=== PATIENT | male | born 1935 | race African-American/Black ===

== ENCOUNTER 2020-11-29 19:40 | Observation (INO) | payer OTHER, MEDICAID ==
[~2020-11-29] VITALS: Ht 180.3 cm; Wt 120.2 kg
[2020-11-29 19:44] VITALS: BP 193/93
[2020-11-29 20:08] LABS: ABSOLUTE EOSINOPHILS 0.2 thou/uL (0.0-0.7); ABSOLUTE LYMPHOCYTES 2.1 thou/uL (0.8-5.3); ABSOLUTE MONOCYTES 0.6 thou/uL (0.0-1.2); ABSOLUTE NEUTROPHILS 3.2 thou/uL (1.6-8.1); BASOPHILS 0.6 %; EOSINOPHILS 2.5 %; HEMATOCRIT 38.9 % (42.0-52.0); HEMOGLOBIN 12.5 gm/dL (14.0-18.0); LYMPHOCYTES 34.9 %; MCH 30.5 pg (26.0-34.0); MCHC 32.2 g/dL (28.0-37.0); MCV 94.7 fL (80.0-100.0); MONOCYTES 10.5 %; MPV 7.8 fl. (7.2-11.1); NUCLEATED RBCS 0 /100WBC; PLATELET COUNT* 162 thou/uL (150-400); POLYS 51.5 %; RDW-CV 16.1 % (10.5-14.5); WBC 6.1 thou/uL (4.0-11.0)
[2020-11-29 20:08] LABS: URINE BILIRUBIN NEGATIVE (Negative); URINE BLOOD TRACE (Negative); URINE CLARITY CLEAR; URINE COLOR YELLOW; URINE GLUCOSE-RANDOM NEGATIVE (Negative); URINE KETONES NEGATIVE (Negative); URINE LEUKOCYTES-REFLEX NEGATIVE (Negative); URINE NITRITE-REFLEX NEGATIVE (Negative); URINE PROTEIN NEGATIVE (Negative); URINE UROBILINOGEN 0.2 E.U./dl (0.2-1.0)
[2020-11-29 20:18] LABS: CALCIUM 8.7 mg/dL (8.5-10.1); CREATININE 1.1 mg/dL (0.6-1.3); POTASSIUM 3.8 mmol/L (3.5-5.1)
[2020-11-29 20:20] LABS: PROTIME 11.1 Seconds (9.20-11.50)
[2020-11-29] MEDS ORDERED: KLOR-CON 10 ER10 MEQ PO (20:23)
[2020-11-29] MEDS ORDERED: ALLOPURINOL 10100 M3 PO (20:23)
[2020-11-29] MEDS ORDERED: CARVEDILOL3.125 MG PO (20:23)
[2020-11-29] MEDS ORDERED: CALCIUM CARBON500 MG PO (20:23)
[2020-11-29] MEDS ORDERED: CIPRO500 MG PO (20:24)
[2020-11-29] MEDS ORDERED: LASIX 40 MG TAB40 MG PO (20:25)
[2020-11-29] MEDS ORDERED: ISOSORBIDE DINI30 MG PO (20:25)
[2020-11-29] MEDS ORDERED: CARDURA XL4 MG PO (20:25)
[2020-11-29] MEDS ORDERED: XTANDI40 MG PO (20:25)
[2020-11-29] MEDS ORDERED: METFORMIN HCL500 MG PO (20:26)
[2020-11-29] MEDS ORDERED: OMEPRAZOLE40 MG PO (20:26)
[2020-11-29] MEDS ORDERED: LISINOPRIL2.5 MG PO (20:26)
[2020-11-29 20:28] LABS: ALBUMIN 3.3 g/dL (3.4-5.0); TOTAL BILIRUBIN 0.6 mg/dL (<0.1-1.0); TOTAL PROTEIN 7.3 g/dL (6.4-8.2)
[2020-11-30 01:05] VITALS: BP 155/79
[2020-11-30 02:00] VITALS: BP 140/73
[2020-11-30] MEDS ORDERED: ASA81BEC PO (09:21)
[2020-11-30 09:48] LABS: CHOLESTEROL 165 mg/dL (<200); HDL CHOLESTEROL 45 mg/dL (>40); LDL CHOLESTEROL 103 mg/dL (<100); TC:HDL 3.7 Ratio (Not establshd); TRIGLYCERIDE 88 mg/dL (<150); VLDL 18 mg/dL (<40)
[2020-11-30 09:49] LABS: SERUM ASSESSMENT Clear
[2020-11-30 11:14] VITALS: BP 157/78
--- NOTE | 2020-11-30 12:44 | EKG ---
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 : 1935 Requested By: Lennie Hurtado Order Number: [id number] MD: Bry Gallagher Measurements Intervals [place] Rate: 69 P: 73 NJ: 68 QRS: -49 QRSD: 121 T: 65 QT: 455 QTc: 488 Interpretive Statements Sinus rhythm Left atrial enlargement, possible Short [place] interval Nonspecific IVCD with LAD No previous ECG available for comparison Electronically Signed On 11-30-2020 12:44:27 FREIGHT SEPARATOR by Bry Gallagher [email or web address] <ELECTRONICALLY SIGNED> By: Bry Gallagher MD, FACC 11/30/20 1244 43 43 Bry Gallagher MD, [facility] /EPI
[2020-12-01 03:06] LABS: GLYCOHEMOGLOBIN (HGB A1C) 4.9 % (4.8-5.6)
== END 2020-11-30 11:45 | disposition home or self-care (01) ==
LOC: M.ERS 19:40 → M.2W 22:59 → M.TBA-ER 22:59 → M.2W 11-30 01:06
PROVIDERS: Emergency Medicine; Internal Medicine; ADMIT Internal Medicine; ATTEND Internal Medicine
DX: R20.0 Anesthesia of skin (principal); I11.0 Hypertensive heart disease with heart failure; I50.9 Heart failure, unspecified; E11.9 Type 2 diabetes mellitus without complications; Z79.82 Long term (current) use of aspirin; Z79.899 Other long term (current) drug therapy; Z20.828 Contact with and (suspected) exposure to other viral communicable diseases